=== PATIENT | female | born 1985 | race Caucasian/White ===

== ENCOUNTER 2024-10-21 17:58 | Emergency (ER) | payer OTHER, SELFPAY ==
--- NOTE | ~2024-10-21 | CT_ITS ---
CLINICAL HISTORY: right leg nubnbess CT head without contrast Comparison: None Findings: No intra-axial mass, midline shift, hydrocephalus, or acute hemorrhage. No significant atrophy-like change or white matter disease. The visualized paranasal sinuses and mastoid air cells are normal. The orbits are unremarkable. No skull fracture. IMPRESSION: 1. No acute intracranial findings. This document has been electronically signed by: Toyin Orr MD on 10/21/2024 20:51:57
[2024-10-21 18:29] VITALS: BP 118/87; PULSE 81; RESP 18; TEMP 36.7; O2SAT 98; BMI 31.1
[2024-10-21 18:56] LABS: MANUAL DIFF FLAG NO
[2024-10-21 19:10] LABS: Basophils Absolute Auto 0.1 X10*3/uL (0.0-0.2); Basophils Percent Auto 1.2 % (0-2); Eosinophils Absolute Auto 0.2 X10*3/uL (0.0-0.4); Eosinophils Percent Auto 3.4 % (0-4); Hemoglobin 12.6 g/dl (12.0-16.0); Imm Gran Abs Auto 0.01 X10*3/uL (0.00-0.03); Imm Gran Pct Auto 0.2 % (0.0-0.4); Lymphocytes Absolute Auto 1.5 X10*3/uL (1.2-4.9); Mean Corpuscular HGB Conc 33.2 g/dl (31.0-35.0); Mean Corpuscular Volume 84.4 fL (80.0-98.0); Mean Platelet Volume 10.2 fL (9.4-12.3); Monocytes Absolute Auto 0.7 X10*3/uL (0.1-1.2); Monocytes Percent Auto 12.1 % (2-11); Neutrophils Absolute Auto 3.5 x10*3/uL (2.0-8.3); Neutrophils Percent Auto 58.1 % (45-73); Platelet Count 273 X10*3/uL (160-400); White Blood Count 5.9 X10*3/uL (4.8-10.8)
[2024-10-21 19:12] LABS: Prothrombin Time 11.6 SEC (10.9-12.4)
[2024-10-21 19:15] LABS: Partial Thromboplastin Time 32.8 SEC (26.0-36.8)
[2024-10-21 19:21] LABS: Alanine Aminotransferase 14 U/L (0-31); Albumin Level 4.6 g/dL (3.5-5.0); Alkaline Phosphatase 60 U/L (39-117); Anion Gap 12 (12-20); Aspartate Amino Transferase 19 U/L (5-31); Bilirubin Total 0.4 mg/dL (0.0-1.0); Blood Urea Nitrogen 10 mg/dL (9-16); Calcium 9.2 mg/dL (8.4-10.2); Carbon Dioxide 24 mmol/L (22-29); Chloride 109 mmol/L (96-108); Creatinine Clr Calc Pharmacy 133.5; Estimated Glomerular Filt Rate > 60; Glucose Random 103 mg/dL (60-115); Potassium 3.9 mmol/L (3.3-5.1); Sodium 141 mmol/L (135-145); Total Protein 7.9 g/dL (6.5-8.0)
--- NOTE | 2024-10-21 19:22 | ED.GENADULT ---
HPI - General Adult General Chief complaint: General Medical Stated complaint: rt leg knee down feels numb Time Seen by Provider: 10/21/24 21:31 Source: patient Mode of arrival: ambulatory Limitations: no limitations History of Present Illness ED Provider: Belle Yost NP HPI narrative: Patient is a 39-year-old female presents emergency department for evaluation. She reports at approximately 17:30 this evening she went to take a shower and was going to shave her legs when she noticed that the sensation overlying her right lu felt different. She initially describes it as a numbness but she states that she is able to feel the area just feels different from the left. Denies a tingling sensation to this. Denies associated leg pain. Pain does not extend above the knee or below the ankle and against primarily over the anterior lu. Denies any recent lower extremity swelling, redness. Has no associated fevers or chills. No recent tick or insect bites. 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 No associated chest pain or shortness breath. Related Data Allergies Allergy/AdvReac Type Severity Reaction Status Date / Time fluconazole Allergy Rash Verified 10/21/24 18:30 Review of Systems Review of Systems: Yes all other systems are reviewed and are negative PMFSH Past Medical History Attestation statement: The following information was validated with the patient. Source: old records reviewed Social History Social History (System 07/08/23 @ 14:11 by Gisele Hussein) Advance Directives: No Advance Directives Information Provided: Yes Do you have a plan to hurt others: No Plan Physical Exam ED Vital Signs: Vital Signs - 24 hr 10/21/24 18:29 10/21/24 22:00 10/21/24 22:31 Temperature 98.1 F 98.2 F Pulse Rate 81 78 78 Respiratory Rate 18 18 18 Blood Pressure 118/87 122/65 122/65 Pulse Oximetry 98 98 98 Oxygen Delivery Method Room Air Room Air Room Air BMI result Body Mass Index 31.1 Appearance: Alert.?Oriented to person, place and time. No acute distress.?Normal affect. Eyes: Pupils equal, round and reactive to light.? ENT: Pharynx normal.?? Neck: Normal inspection.? Neck supple.?? CVS: Heart sounds normal. Normal heart rate and rhythm.? Pulses normal.?? Respiratory: No respiratory distress.? Lung sounds clear to auscultation bilaterally?? Abdomen: Soft and non-tender. Normoactive bowel sounds. ?? Skin: Skin warm and dry.? Normal skin color.? Extremities: No lower extremity edema.? No calf ttp? Neuro: Moves all extremities spontaneously. Sensation intact bilaterally. CN II-XII intact. No focal neuro deficits. Ambulates with normal steady gait. NIH Stroke Scale Internal: Initial- Upon Arrival Level of Consciousness: Alert Level of Consciousness Questions: Answers both questions correctly Level of Consciousness Commands: Performs both tasks correctly Best Gaze: Normal Visual: No visual loss Facial Palsy: Normal Motor Arm (Right): No drift Motor Arm (Left): No drift Motor Leg (Right): No drift Motor Leg (Left): No drift Limb Ataxia: Absent Sensory: Normal Best Language: No aphasia Dysarthia: Normal Extinction and Inattention: No abnormality Score: 0 Course Course Course Narrative: RME; [age]-year-old female presents to ED for right leg numbness that began an hour ago., patient states it started after taking a shower. Patient patient denies any slurred speech, facial droop, paralysis of extremities, loss of vision, dizziness, nausea, vomiting, or headache. Patient denies any back pain or any urinary/bowel incontinence. NIH score is 0. On exam patient not having stroke just local paresthesia will do basic labs head CT. Medical Decision Making Medical Decision Making MDM Narrative: Patient is a 39-year-old female who presents emergency department for evaluation of localized paresthesia to the right anterior lu as per HPI. Extremity is neurovascularly intact distally. Low suspicion for VTE, Wells score low risk. No evidence of cellulitis. No weakness. Full range of motion to right knee and ankle. Serum labs were obtained prior to my assumption of care; CBC is without leukocytosis anemia or thrombocytopenia. No electrolyte derangement. No LLOYD. CT of the head was obtained in his without acute intracranial pathology, no evidence of CVA to suggest a cause for the paresthesia. Sensation is intact. Denies any known tick bites or recent exposure, is less consistent with vasculitis, consistent with Guillain-Daniels. She does have history of arthritis to the lumbar spine as well as the hip, a possibly be involvement/radiculopathy, her possibly lu splints as she does admit that she has recently been exercising and doing extensive walking. No open wounds or lesions. No trauma or injury to suggest an acute fracture would defer XR imaging at this time. Discussed worrisome signs and symptoms that would warrant re-evaluation in the emergency department, outpatient follow-up with primary care doctor. All questions answered. Differential Diagnosis Differential Diagnoses: The differential diagnosis associated with the presentation includes (See narrative above) Admission/Observation Consideration of admission/observation: Escalation of care including admission/observation considered (See narrative above) Lab Data MDM Lab Attestation statement: I reviewed the patient's lab results. (See narrative above) 10/21/24 18:50 10/21/24 18:50 Labs: Lab Results 10/21/24 Range/Units 18:50 WBC 5.9 (4.8-10.8) X10*3/uL RBC 4.50 (4.20-5.50) X10*6/uL Hgb 12.6 (12.0-16.0) g/dl Hct 38.0 (37.0-47.0) % MCV 84.4 (80.0-98.0) fL MCH 28.0 (27.0-33.0) pg MCHC 33.2 (31.0-35.0) g/dl RDW 13.0 (11.0-16.0) % Plt Count 273 (160-400) X10*3/uL MPV 10.2 (9.4-12.3) fL Immature Gran % (Auto) 0.2 (0.0-0.4) % Neut % (Auto) 58.1 (45-73) % Lymph % (Auto) 25.0 (20-40) % [place] % (Auto) 12.1 H (2-11) % Eos % (Auto) 3.4 (0-4) % Baso % (Auto) 1.2 (0-2) % Lymph # (Auto) 1.5 (1.2-4.9) X10*3/uL [place] # (Auto) 0.7 (0.1-1.2) X10*3/uL Eos # (Auto) 0.2 (0.0-0.4) X10*3/uL Baso # (Auto) 0.1 (0.0-0.2) X10*3/uL Abs Immat Gran (auto) 0.01 (0.00-0.03) X10*3/uL Absolute Neuts (auto) 3.5 (2.0-8.3) x10*3/uL Absolute Nucleated RBC 0.000 (0.0-0.012) X10*3/uL Nucleated RBC % (auto) 0.0 (0.0-0.2) /100WBC PT 11.6 (10.9-12.4) SEC INR 1.0 (0.9-1.1) APTT 32.8 (26.0-36.8) SEC Sodium 141 (135-145) mmol/L Potassium 3.9 (3.3-5.1) mmol/L Chloride 109 H (96-108) mmol/L Carbon Dioxide 24 (22-29) mmol/L Anion Gap 12 (12-20) BUN 10 (9-16) mg/dL Creatinine 0.63 (0.5-1.4) mg/dL Estim Creat Clear Calc 133.5 Estimated GFR > 60 Random Glucose 103 (60-115) mg/dL Calcium 9.2 (8.4-10.2) mg/dL Magnesium 2.0 (1.6-2.6) mg/dL Total Bilirubin 0.4 (0.0-1.0) mg/dL AST 19 (5-31) U/L ALT 14 (0-31) U/L Alkaline Phosphatase 60 (39-117) U/L Total Creatine Kinase 59 (26-140) U/L Total Protein 7.9 (6.5-8.0) g/dL Albumin 4.6 (3.5-5.0) g/dL Independent Interpretation I performed an independent interpretation of an: CT Scan (No ICH, infarct, or intracranial mass) Radiology Impression Discussion of test interpretation with radiology: I have reviewed the radiologist's reading. Radiologist Impression: CT head without contrast Comparison: None Findings: No intra-axial mass, midline shift, hydrocephalus, or acute hemorrhage. No significant atrophy-like change or white matter disease. The visualized paranasal sinuses and mastoid air cells are normal. The orbits are unremarkable. No skull fracture. IMPRESSION: 1. No acute intracranial findings. External Record Review External record reviewed: Outpatient record Discharge Plan Discharge Clinical Impression: Paresthesia of right lower extremity Patient Disposition: Home, Self-Care Instructions: Paresthesia (ED) Additional Instructions: Please contact your primary care doctor to arrange for a follow-up visit within the next 1-3 days. Return to emergency department any new or worsening symptoms or concerns. Be sure to rest over the next few days, you may apply ice/heat to the area for 10-15 minutes 3-4 times daily. Referrals: Wan Rosado PA [Primary Care Provider] - Interventions: ED Discharge Assessment Last Done: 10/21/24 22:31 Discharge Date/Time: 10/21/24 22:36 Print Language: [place]
[2024-10-21 22:00] VITALS: BP 122/65; PULSE 78; RESP 18; O2SAT 98
[2024-10-21 22:31] VITALS: BP 122/65; PULSE 78; RESP 18; TEMP 36.8; O2SAT 98
== END 2024-10-21 22:36 | disposition home or self-care (01) ==
PROVIDERS: Physician Assistant; Emergency Provider Emergency Medicine; PCP Physician Assistant Medical
DX: R20.0 Anesthesia of skin (principal); R51.9 Headache, unspecified; M25.561 Pain in right knee; Z79.899 Other long term (current) drug therapy
CPT/HCPCS: 36415; 70450; 80053; 82550; 83735; 85025; 85610; 85730; 99284

== ENCOUNTER → 2024-10-21 19:23 | Outpatient (BNV) | payer OTHER, MEDICAID, SELFPAY | PROVIDERS: PCP Internal Medicine; Visit Provider Radiology Diagnostic Radiology | DX: R20.2 Paresthesia of skin (principal) | CPT/HCPCS: 70450 ==